=== PATIENT | female | born 1990 | race Two or more races ===

== ENCOUNTER 2021-03-09 22:24 | Emergency (ER) | payer SELFPAY ==
[~2021-03-09] VITALS: Ht 154.9 cm; Wt 86.2 kg
[2021-03-10 04:54] VITALS: BP 135/68
== END 2021-03-10 05:00 | disposition home or self-care (01) ==
LOC: ER 22:30
DX: S91.032A Puncture wound without foreign body, left ankle, initial encounter (principal); S90.562A Insect bite (nonvenomous), left ankle, initial encounter; E66.9 Obesity, unspecified; Z68.35 Body mass index [BMI] 35.0-35.9, adult; W57.XXXA Bitten or stung by nonvenomous insect and other nonvenomous arthropods, initial encounter; Y93.89 Activity, other specified; Y92.89 Other specified places as the place of occurrence of the external cause; Y99.8 Other external cause status